=== PATIENT | male | born 1980 | race Asian ===

== ENCOUNTER 2021-03-27 07:22 | Emergency (ER) | payer OTHER ==
[~2021-03-27] VITALS: Ht 165.1 cm; Wt 80.0 kg
[2021-03-27 09:20] VITALS: BP 137/84
[2021-03-27] MEDS ORDERED: IBUPROFEN 200 MG TABLET. PO ONE (09:45)
[2021-03-27] MEDS ORDERED: ACETAMINOPHEN 325 MG TABLET. PO ONE (09:45)
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
[2021-03-27] MEDS ORDERED: CYCL10TA2 PO (11:03)
[2021-03-27] MEDS ORDERED: HYDR-2761 PO (11:03)
[2021-03-27] MEDS ORDERED: IBUP-1007 PO (11:03)
== END 2021-03-27 11:15 | disposition home or self-care (01) ==
LOC: ER 07:22
DX: S39.012A Strain of muscle, fascia and tendon of lower back, initial encounter (principal); S80.02XA Contusion of left knee, initial encounter; S80.812A Abrasion, left lower leg, initial encounter; F17.200 Nicotine dependence, unspecified, uncomplicated; V43.53XA Car driver injured in collision with pick-up truck in traffic accident, initial encounter; Y93.I9 Activity, other involving external motion; Y92.488 Other paved roadways as the place of occurrence of the external cause; Y99.8 Other external cause status
CPT/HCPCS: 72131; 72192; 73564; 73590; 99285-25

== ENCOUNTER 2022-01-05 22:53 | Emergency (ER) | payer OTHER ==
[~2022-01-05] VITALS: Ht 167.6 cm; Wt 90.0 kg
[~2022-01-05 22:53] MED LIST: CYCL10TA19 PO; HYDR-2761 PO; IBUP-1007 PO
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
[2022-01-05 23:27] LABS: BASO % 0 % (0-3); EOS # 0.1 x10^3/uL (0.0-0.7); EOS % 1 % (0-3); HEMATOCRIT 38.8 % (39.0-53.0); HEMOGLOBIN 13.2 g/dL (13.0-17.5); LYMPH % 18 % (24-48); MEAN CORPUSCULAR HEMOGLOBIN 29 pg (25-35); MEAN CORPUSCULAR HGB CONC 34 g/dL (31-37); MEAN CORPUSCULAR VOLUME 86 fL (79-100); MONO # 0.5 x10^3/uL (0.0-1.1); MONO % 4 % (0-9); NEUT # 8.5 x10^3/uL (1.8-7.7); NEUT % 77 % (31-73); PLATELET COUNT 208 x10^3/uL (140-400); RED BLOOD COUNT 4.49 x10^6/uL (4.30-5.70); RED CELL DISTRIBUTION WIDTH 12.7 % (11.5-14.5)
[2022-01-05] MEDS ORDERED: ONDANSETRON PF 4 MG/2 ML VIAL. IVP ONE (23:30)
[2022-01-05] MEDS ORDERED: fentaNYL PF VIAL 100 MCG/2 ML VIAL IVP ONE (23:30)
[2022-01-05] MEDS ORDERED: IV NORMAL SALINE 1000ML BAG 1,000 ML IV ONE (23:30)
[2022-01-05 23:36] LABS: CREATININE 1.1 mg/dL (0.7-1.3); GFR 73.8; POTASSIUM 3.8 mmol/L (3.5-5.1)
[2022-01-05 23:42] LABS: ALBUMIN 4.1 g/dL (3.4-5.0); MAGNESIUM 1.9 mg/dL (1.8-2.4); TOTAL BILIRUBIN 0.4 mg/dL (0.2-1.0); TOTAL PROTEIN 8.1 g/dL (6.4-8.2)
[2022-01-06] MEDS ORDERED: CONTRAST GIVEN. MC PRN (00:15)
[2022-01-06] MEDS ORDERED: MORPHINE SULFATE 4 MG/ML INJ. IVP ONE (00:30)
[2022-01-06] MEDS ORDERED: IOHEXOL 300 MG/ML 100ML VIAL. IV ONE (00:30)
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
[2022-01-06] MEDS ORDERED: KETOROLAC 30 MG/ML VIAL. IVP ONE (01:30)
[2022-01-06 01:57] LABS: BACTERIA,URINE 0 /HPF (0-FEW); RBC,URINE 0 /HPF (0-2); WBC,URINE 0 /HPF (0-4)
[2022-01-06] MEDS ORDERED: TRAM50TA PO (02:40)
[2022-01-06 02:48] VITALS: BP 110/57
[2022-01-09] MEDS ORDERED: METF500T16 PO (15:05)
[2022-01-12] MEDS ORDERED: OSEL75CA PO (15:12)
[2022-01-12] MEDS ORDERED: SENN1TAB99 PO (15:12)
[2022-01-12] MEDS ORDERED: OXYC1TAB15 PO (15:12)
[2022-01-12] MEDS ORDERED: FAMO20TA5 PO (15:12)
== END 2022-01-06 02:55 | disposition home or self-care (01) ==
LOC: ER 22:53
DX: R10.84 Generalized abdominal pain (principal); R11.2 Nausea with vomiting, unspecified; R14.0 Abdominal distension (gaseous); F17.200 Nicotine dependence, unspecified, uncomplicated
CPT/HCPCS: 36415; 74177; 80053; 81001; 83690; 83735; 85025; 96361; 96374; 96375; 99285; J1885; J2270; J2405; J3010; J7030; Q9967